=== PATIENT | male | born 1950 | race Caucasian/White ===

== ENCOUNTER → 2023-12-21 10:22 | Outpatient (REF) | payer MEDICARE, OTHER, SELFPAY | LOC: HWRAD 10:22 | PROVIDERS: ATTENDING PHYSICIAN Internal Medicine Endocrinology, Diabetes & Metabolism; FAMILY PHYSICIAN Family Medicine | DX: M81.0 Age-related osteoporosis without current pathological fracture (principal) | CPT/HCPCS: 77080 ==

== ENCOUNTER → 2025-05-20 12:58 | Outpatient (REF) | payer MEDICARE, OTHER, SELFPAY | LOC: HWRAD 12:58 | PROVIDERS: ATTENDING PHYSICIAN Family Medicine; REFERRING PHYSICIAN Psychiatry & Neurology Neurology | DX: M54.6 Pain in thoracic spine (principal); M54.50 Low back pain, unspecified | CPT/HCPCS: 36415; 72072; 72110 ==

== ENCOUNTER → 2025-05-23 09:56 | Outpatient (REF) | payer MEDICARE, OTHER, SELFPAY | LOC: HWRAD 09:56 | PROVIDERS: ATTENDING PHYSICIAN Family Medicine; REFERRING PHYSICIAN Internal Medicine Gastroenterology | DX: R10.11 Right upper quadrant pain (principal) | CPT/HCPCS: 76700 ==

== ENCOUNTER 2025-07-02 13:13 | Inpatient (IN) | payer MEDICARE, OTHER, SELFPAY ==
[2025-07-01] VITALS (11 sets, daily range): BP systolic 85–122; BP diastolic 60–96; BMI 25.9; BMI 25.2
--- NOTE | 2025-07-01 11:04 | EDRN ---
Assumed care of this pt at this time.
--- NOTE | 2025-07-01 11:25 | ED.GENMED ---
History of Present Illness
<BING Cool - Last Filed: 07/01/25 13:58>
General
Chief Complaint: Heart Rate Problem
Source: patient
Exam Limitations: none
Time Seen by Provider: 07/01/25 10:56
Nursing documentation reviewed up to this point in time: agreed with
History of Present Illness
History of Present Illness:
74 yr old male with pmh of asthma, hyperlipidemia, anxiety depression presents to the ER for evaluation. For the past several days to a week he has felt shortness of breath and his heart racing. He denies any associated chest pain. Patient reports
2-1/2 weeks ago he had an episode of lightheadedness and almost passed out. He saw his family doctor around 2 weeks ago and was told his blood pressure was low at that time. Pt denies any recent illness, denies any fevers cough.
No previous history of PE DVT.
Pt quit smoking almost 30 + years ago.
Past History
<BING Cool - Last Filed: 07/01/25 13:58>
Past History
ED Past Medical History: Psychiatric (bipolar depression)
ED Past Surgical History: None
Social History
Alcohol: None
Drug: None
Personal: Other
Living: with roommate
Employment: Not employed
Family History
Family History: Unable to obtain
Phy Exam
<BING Cool - Last Filed: 07/01/25 13:58>
General Physical Exam
General Presentation: no apparent distress
General age: appears stated age
General Skin: warm and dry
General Habitus: normal
General Mental: alert
General Hydration: dry mucous membranes
Cardiovascular Exam
Cardiovascular Exam: no murmur and tachycardia
Pulmonary Exam
Pulmonary Exam: lungs clear and no respiratory distress
Neurological Exam
Neurological Exam: alert and oriented x3
Musculoskeletal Exam
Musculoskeletal Exam: full ROM
Skin Exam
Skin Exam: normal color and warm/dry
Psychiatric Exam
Psychiatric Exam: normal mood/affect
Course
<BING Cool - Last Filed: 07/01/25 13:58>
Orders/Labs/Results
Orders:
Orders
07/01/25 10:18
Electrocardiogram (*1) Urgent
Reason for Study: Chest Pain
EKG- Treatment ONCE
07/01/25 11:06
Cardiac Monitoring- Treatment ONCE
IV Insert/Care/Rem.- Treatment PRN
07/01/25 11:23
Complete Blood Count/With Diff Urgent
07/01/25 11:24
Comprehensive Metabolic Panel Urgent
TSH Urgent
Comment: ADD ON
Troponin I Urgent
07/01/25 11:49
0.9% Sodium Chloride 1000 ml [Nss] 1,000 ml IV BOLUS
07/01/25 12:04
DDimer [D-Dimer] Urgent
07/01/25 12:27
CT Chest PE Study Urgent
Comment:
Reason For Exam: sob
07/01/25 13:19
Add On- LAB Urgent
Tests Added?: tsh
Abnormal Lab Results
07/01/25 07/01/25
11:23 11:24
RBC 4.01 L 10^6/uL
(4.70-6.10)
Hgb 12.0 L g/dL
(13.0-18.0)
Hct 35.4 L %
(39.0-52.0)
Absolute Lymphs (auto) 1.0 L 10^3/uL
(1.2-3.4)
Absolute Monos (auto) 0.8 H 10^3/uL
(0.1-0.6)
Lymphocytes % 16.8 L %
(20.5-51.1)
Monocytes % 12.6 H %
(1.7-9.3)
Sodium 134 L mmol/L
(135-145)
BUN 29 H mg/dl
(9-20)
Glucose 106 H mg/dl
(70-99)
Calcium 10.4 H mg/dl
(8.4-10.2)
Troponin I 0.036 H* ng/ml
07/01/25 11:23
07/01/25 11:24
Vital Signs
Initial and Last Documented VS:
Initial Vital Signs
Temp Pulse Resp BP Pulse Ox
97.9 F 96 22 113/82 96
07/01/25 10:12 07/01/25 10:12 07/01/25 10:12 07/01/25 10:12 07/01/25 10:12
Last Documented Vital Signs
Temp Pulse Resp BP Pulse Ox
97.9 F 109 28 105/84 96
07/01/25 10:12 07/01/25 13:15 07/01/25 13:15 07/01/25 13:02 07/01/25 13:15
Plater Apprentice consulted with Physician
Plater Apprentice consulted with physician?: Yes
Name of Physician Consulted: Miller
<Kevin Bhatt, DO - Last Filed: 07/01/25 13:59>
Orders/Labs/Results
Orders:
Orders
07/01/25 10:18
Electrocardiogram (*1) Urgent
Reason for Study: Chest Pain
EKG- Treatment ONCE
07/01/25 11:06
Cardiac Monitoring- Treatment ONCE
IV Insert/Care/Rem.- Treatment PRN
07/01/25 11:23
Complete Blood Count/With Diff Urgent
07/01/25 11:24
Comprehensive Metabolic Panel Urgent
TSH Urgent
Comment: ADD ON
Troponin I Urgent
07/01/25 11:49
0.9% Sodium Chloride 1000 ml [Nss] 1,000 ml IV BOLUS
07/01/25 12:04
DDimer [D-Dimer] Urgent
07/01/25 12:27
CT Chest PE Study Urgent
Comment:
Reason For Exam: sob
07/01/25 13:19
Add On- LAB Urgent
Tests Added?: tsh
Abnormal Lab Results
07/01/25 07/01/25
11 11:24
RBC 4.01 L 10^6/uL
(4.70-6.10)
Hgb 12.0 L g/dL
(13.0-18.0)
Hct 35.4 L %
(39.0-52.0)
Absolute Lymphs (auto) 1.0 L 10^3/uL
(1.2-3.4)
Absolute Monos (auto) 0.8 H 10^3/uL
(0.1-0.6)
Lymphocytes % 16.8 L %
(20.5-51.1)
Monocytes % 12.6 H %
(1.7-9.3)
Sodium 134 L mmol/L
(135-145)
BUN 29 H mg/dl
(9-20)
Glucose 106 H mg/dl
(70-99)
Calcium 10.4 H mg/dl
(8.4-10.2)
Troponin I 0.036 H* ng/ml
07/01/25 11:23
07/01/25 11:24
Vital Signs
Initial and Last Documented VS:
Initial Vital Signs
Temp Pulse Resp BP Pulse Ox
97.9 F 96 22 113/82 96
07/01/25 10:12 07/01/25 10:12 07/01/25 10:12 07/01/25 10:12 07/01/25 10:12
Last Documented Vital Signs
Temp Pulse Resp BP Pulse Ox
97.9 F 109 28 105/84 96
07/01/25 10:12 07/01/25 13:15 07/01/25 13:15 07/01/25 13:02 07/01/25 13:15
<BING Cool - Last Filed: 07/01/25 13:58>
MDM/Problems Addressed
MDM/Problems Addressed:
As documented patient is a 74-year-old male presents for rapid heart rate shortness of breath. Patient had a near syncopal episode about a week ago. Patient presents to the ER tachycardic blood pressure on the lower side. He denies any fevers his
white count is normal his hemoglobin is stable his BUN is mildly elevated he was given fluids here in the ER.
His trop is elevated however no chest pain possible related to the tachycardia. ct chest neg for PE + interstitial edema and bilateral small effusions there is consolidation the right upper and right lower lobe suspicious for pneumonia however
patient has not had any cough or URI symptoms we will hold off on antibiotics. Additional findings include small pulmonary nodules right lower leg ovoid cystic structure will need ultrasound, hiatal hernia and moderate cardiomegaly. Patient
remains persistently tachycardic with symptoms of syncope and tachycardia along with elevated troponin would recommend admission. Case discussed ED physician
<BING Cool - Last Filed: 07/01/25 13:58>
*Radiology
Radiology exam reviewed: radiology read reviewed
*Pulse Oximetry
SaO2: 96
Oxygen Mode of Delivery: Room air
Patient hypoxic: no
*EKG
Interpreted by ED Provider?: Yes
Heart Rate: 118
Rate: tachycardiac
Rhythm: sinus
QRS Pattern: right bundle branch block
Ischemia: non-specific ST changes
*Critical Care Note
Total Time (30-74mins, 75-104mins- exclusive of procedures): Not Applicable
Data Reviewed
Review of Other/Old Records Reveals: Labs
Source: patient
ED Attending Note
<BING Cool - Last Filed: 07/01/25 13:58>
-
Portions of this chart may have been created with voice recognition software.� Occasional wrong word or��sound alike� substitutions may have occurred due to the inherent limitations of voice recognition software.
<Kevin Bhatt DO - Last Filed: 07/01/25 13:59>
ED Attending Note
Patient seen and examined by attending physician: Yes
I performed the substantive portion of visit, reviewed & personally made and approve the management plan that is documented in note by myself or ESTEFANIA.: Yes
ED Attending Note:
Seen with REFRACTIVE SURGEON examined independently 74-year-old male presents for evaluation 3 weeks ago at rapid heart rate shortness of breath and syncope since then he has been following up with his PCP had some GI workup also an MRI of his back, he said
increased shortness of breath, persistently tachycardic, no fevers, labs are noted D-dimer noted chest CT noted
Etiology of his symptoms is not entirely clear perhaps infectious for volume, thyroid, question myocarditis does not appear to have a PE nonetheless he is symptomatic tachycardic believe he should be admitted
Discharge Plan
Departure
Prescriptions:
No Action
quetiapine [Seroquel] 25 mg Tablet
25 mg PO HSPRN PRN (Reason: sleep)
lamotrigine 200 mg Tablet
200 mg PO DAILY
dexmethylphenidate 10 mg Tablet
10 mg PO DAILY@1400
lorazepam 0.5 mg Tablet
0.5 mg PO DAILYPRN PRN (Reason: anxiety)
pantoprazole [Protonix] 40 mg Tablet,Delayed Release (Dr/Ec)
40 mg PO DAILYPRN PRN (Reason: gerd)
bupropion HCl [Wellbutrin XL] 300 mg Tablet Extended Release 24 Hr
300 mg PO DAILY
quetiapine [Seroquel] 50 mg Tablet
50 mg PO HS
dexmethylphenidate 40 mg Capsule,Er Biphasic 50-50
40 mg PO DAILY
Referrals:
Hudson Whyte MD [Family Provider, [facility]]
Interventions
Interventions:
*Risk Screen - Suicide Last Done: 07/01/25 10:15
*General Assessment Last Done: 07/01/25 10:15
*Neglect/Abuse Screening Last Done: 07/01/25 10:15
*ED- Fall Risk Assessment Last Done: 07/01/25 11:35
*ED COVID-19 Vaccine History Last Done: 07/01/25 12:08
*ED Influenza Vaccine History Last Done: 07/01/25 12:08
ED- Cardiac Assessment Last Done: 07/01/25 11:33
ED- Pulmonary Assessment Last Done: 07/01/25 11:33
Discharge Date and Time
Print Language: BHUTANESE
[2025-07-01 11:36] LABS: Hematocrit 35.4 % (39.0-52.0); Hemoglobin 12.0 g/dL (13.0-18.0); Mean Corp Hgb Conc. 33.9 g/dL (33.0-37.0); Mean Corpuscular Volume 88.3 fL (80.0-94.0); Nucleated Red Blood Cells % 0 % (-); Platelet Count 263 10^3/uL (130-400); Red Cell Dist. Width 14.1 % (11.5-14.5)
--- NOTE | 2025-07-01 11:42 | EDRN ---
Brianne Nava NP in room w/ pt.
[2025-07-01 11:58] LABS: ALT (SGPT) 25 U/L (0-50); AST (SGOT) 21 U/L (17-59); Albumin 3.9 g/dl (3.5-5.0); Alkaline Phosphatase 82 U/L (38-126); Blood Urea Nitrogen 29 mg/dl (9-20); Calcium 10.4 mg/dl (8.4-10.2); Carbon Dioxide 24 mmol/L (22-30); Chloride 103 mmol/L (98-107); Estimated Creatinine Clearance 53 ml/min; Glucose 106 mg/dl (70-99); Potassium 4.6 mmol/L (3.5-5.1); Sodium 134 mmol/L (135-145); Total Protein 6.3 g/dl (6.3-8.2); eGFR > 60.00
[2025-07-01] MEDS: NSS 1000 IV (12:09)
[2025-07-01 12:21] LABS: Troponin I 0.036 ng/ml
[2025-07-01 12:37] LABS: D-Dimer 0.34 ug/mlFEU (0.00-0.50)
--- NOTE | 2025-07-01 13:37 | EDRN ---
Dr. Bhatt in room w/pt at this time.
--- NOTE | 2025-07-01 15:03 | EDRN ---
Dr. Welsh in room w/ pt at this time.
[2025-07-01 15:20] LABS: TSH 3.15 uIU/ml (0.47-4.68)
--- NOTE | 2025-07-01 15:38 | HPS.HSE ---
Family Physician
-
Family Physician: Hudson Whyte
Chief Complaint
-
Tachycardia, shortness of breath
History of Present Illness
74-year-old male here complaining of tachycardia and shortness of breath for the past 2 to 3 weeks.
He is a very limited and poor historian.
Denies fevers, chills, cough.
Medical History
Past Medical History
Past Medical History: Reports Other
Additional Past Medical History:
Asthma
Hyperlipidemia
Anxiety disorder
Depression
ADD
Past Surgical History: Reports Orthopedic
Social History
Tobacco: Former Smoker
Alcohol: None
Drug: None
Personal: Single
Employment: Not Employed
Family History
Family History: Not pertinent
Allergies / Home Medications
Allergies reflects when Allergies were last updated in [employer].
Home Medications with original date entered in [employer]
Allergy/Medication List:
Allergies
Allergy/AdvReac Type Severity Reaction Status Date / Time
Hayfever Allergy Mild-Sneezing, Uncoded 07/01/25 10:12
sinus
drainage
Home Medications
bupropion HCl 300 mg 24 hr tablet, extended release (Wellbutrin XL) 300 mg PO DAILY Mental Health/Anxiety 07/01/25
dexmethylphenidate 10 mg tablet 10 mg PO DAILY@1400 Mental Health/Anxiety 07/01/25
dexmethylphenidate 40 mg capsule,extended release [id number] 40 mg PO DAILY Mental Health/Anxiety 07/01/25
lamotrigine 200 mg tablet 200 mg PO DAILY Mental Health/Anxiety 07/01/25
lorazepam 0.5 mg tablet 0.5 mg PO DAILYPRN PRN anxiety 07/01/25
pantoprazole 40 mg tablet,delayed release (Protonix) 40 mg PO DAILYPRN PRN gerd 07/01/25
quetiapine 25 mg tablet (Seroquel) 25 mg PO HSPRN PRN sleep 07/01/25
quetiapine 50 mg tablet (Seroquel) 50 mg PO HS Sleep 07/01/25
Review of Systems
-
History Source: Patient
A 12 point ROS was completed and negative except as noted: Yes
Physical Exam
Vital Signs
Vital Signs
Temp Pulse Resp BP Pulse Ox
97.9 F 118 20 122/89 95
07/01/25 10:12 07/01/25 15:01 07/01/25 15:01 07/01/25 15:01 07/01/25 15:01
Physical Exam
General: Well Developed, Well Nourished and Respiratory Distress (Mildly tachypneic)
HEENT: NormoCephalic, Anicteric and Moist mucous membranes
Respiratory: Decreased Breath Sounds
Cardiac: S1/S2 and Regular Rhythm
GI: Soft, Non Tender and Non Distended
Genito-urinary: Deferred by me
Musculoskeletal: No Clubbing, No Cyanosis and No Edema
Skin: Warm and Dry
Neuro: AO x 3
Hematologic/Lymphatic: No Lymphadenopathy
Psych: Anxious
Laboratory Results
-
07/01/25 11:23
07/01/25 11:24
Laboratory Results
Total Bilirubin 0.3 mg/dl (0.2-1.3) 07/01/25 11:24
AST 21 U/L (17-59) 07/01/25 11:24
ALT 25 U/L (0-50) 07/01/25 11:24
Alkaline Phosphatase 82 U/L (38-126) 07/01/25 11:24
Troponin I 0.036 ng/ml H* 07/01/25 11:24
Impression/Plan
-
Sinus tachycardia/shortness of breath -not appreciably hypoxic. No pulmonary embolism noted on CT chest. D-dimer 0.34.
CT chest does show interstitial edema and bilateral small pleural effusions. Right upper lobe and right lower lobe consolidation noted, differential diagnosis of CHF versus pneumonia. Nonspecific right lower neck ovoid cystic structure measuring
2.4 cm of indeterminate etiology.
Looks nontoxic, afebrile. WBC count normal.
Does not examine in heart failure but will check BNP.
Check echocardiogram in the morning. Evaluate for valvular heart disease, cardiomyopathy.
TSH noted to be normal.
Mild troponin elevation noted. Denies chest pain. Will trend troponins. EKG shows sinus tachycardia, occasional PVCs, bifascicular block. Patient denies cardiac history.
Check COVID antigen.
Former smoker -patient states he quit smoking 40 years ago.
Anxiety/depression -resume home meds.
Full code
[2025-07-01 17:07] LABS: COVID-19 Antigen Negative (Negative)
--- NOTE | 2025-07-01 18:09 | TRANSFER ---
pt arrived from ED via stretcher accompanied by staff. pt ambulated from stretcher to bed with standby assist. VSS. pt AAOx3, no complaints at this time. plan of care ongoing.
[2025-07-01] MEDS: LOVENOX 40 MG SC (18:20)
[2025-07-01 21:25] LABS: Troponin I 0.036 ng/ml
[2025-07-01] MEDS: SEROQUEL 50 MG PO (22:43)
[2025-07-01] MEDS: SEROQUEL 25 MG PO (23:00)
[2025-07-02] VITALS (8 sets, daily range): BP systolic 97–120; BP diastolic 62–78; BMI 25.5
[2025-07-02 03:55] LABS: Blood Urea Nitrogen 23 mg/dl (9-20); Calcium 9.7 mg/dl (8.4-10.2); Carbon Dioxide 24 mmol/L (22-30); Chloride 107 mmol/L (98-107); Estimated Creatinine Clearance 65 ml/min; Glucose 92 mg/dl (70-99); Potassium 4.0 mmol/L (3.5-5.1); Sodium 134 mmol/L (135-145); eGFR > 60.00
[2025-07-02 04:07] LABS: Troponin I 0.036 ng/ml
[2025-07-02 08:01] LABS: Hepatitis C Antibody Negative (Negative)
[2025-07-02] MEDS: LAMICTAL 200 MG PO (08:34)
[2025-07-02] MEDS: WELLBUTRIN XL (24 hour extended release) 300 MG PO (08:35)
[2025-07-02 09:13] LABS: Troponin I 0.031 ng/ml
[2025-07-02] MEDS: TUMS CHEWABLE TABLET 400 MG PO ×2 (13:05→17:08)
--- NOTE | 2025-07-02 13:07 | W.PN.HOSP.TC ---
Today's Communication/Plan
-
Consult cardiology
Assessment / Plan
Assessment / Plan
Gen-AAOx3, NAD
HEENT-NC, AT, anicteric, clear oral mm
Neck-supple
CV-reg, no M, +S1/S2
Lungs-clear B/L
Abd-soft, NT, ND
Ext-no edema
Musculoskeletal-no cyanosis, clubbing
Skin-warm and dry
Neuro-grossly non-focal
Psych-calm, cooperative
Acute heart failure reduced EF exacerbation -new diagnosis of heart failure.
Echocardiogram shows dilated LV, severe LV systolic dysfunction, EF 25%. Severe MR.
CT chest shows interstitial edema, very small pleural effusions.
Hypotension noted, but ideally will need to start furosemide.
Cardiology consulted.
Will need ischemic workup eventually.
Anxiety/depression
Former smoker
Full code
Anticipated Discharge: > 48 hours
Subjective/Interval History
-
Date of Service: July 02, 2025
Patient seen/examined. Still with exertional dyspnea.
Objective Data
-
Labs:
Laboratory Results
07/02/25
03:22
Sodium 134 L
Potassium 4.0
Chloride 107
Carbon Dioxide 24
BUN 23 H
Creatinine 0.9
Glucose 92
Calcium 9.7
Vital Signs:
Vital Signs
Temp Pulse Resp BP Pulse Ox
98.0 F 107 20 108/75 98
07/02/25 11:20 07/02/25 11:20 07/02/25 11:20 07/02/25 11:20 07/02/25 11:20
I&O
07/01/25 07/02/25 07/03/25
06:59 06:59 06:59
Intake Total 480 / 480
Output Total 1800 / 1800
Balance -1320 / -1320
Review of Systems
-
History Source: Patient
All other systems: Reviewed and negative
[2025-07-02] MEDS: LASIX 40 MG IV (13:38)
--- NOTE | 2025-07-02 15:26 | CON.CAR ---
Addendum entered and electronically signed by Shyam Olivia MD 07/02/25 17:45:
I saw and evaluated the patient, and I provided the substantive portion of the medical decision making.
I reviewed and agree with the note by BING Martin and it accurately reflects our care.
I personally performed the medical decision making of the this encounter and my assessment and plan is below:
Progressive KNIGHT and atypical back pain, some palpitations
Extensive Psych d/o. He is not sure he would tolerate being off his stimulant (dexmethylphenidate)
Hx of MVP with mild to mod MR in 2020 without f/u echo
Imp
Acute on chronic (but new over perhaps 3 months) HFrEF
Severe MR, may be primary MR from MVP
Dilated cardiomyopathy
Bifasciular block
Psych d/o
stimulant use
Plan
Diuresis
Add GDMT
R/L Heart cath 07/03/2025
in several months on max meds will check echo to see how LVEF and MR are doing.
Data:
EKG ST RBBB/LAFB, cannot rule out IMI, age indeterminant
Echo 07/02/2025:
SUMMARY
1. LV is dilated. There is severe LV systolic dysfunction. LVEF estimated 25%.
2. Severe mitral regurgitation.
3. Moderate pulmonary hypertension, est. PASP 50 mmHg.
4. Bilateral effusions noted.
5. Echocardiogram dated 10/27/2020 revealed LVEF of 60% with posterior mitral valve prolapse and mild to mod MR and normal pulm artery systolic pressure.
CT CHEST 07/01/2025:
IMPRESSION:
1. No pulmonary embolism identified.
2. Interstitial edema and bilateral very small pleural effusions.
3. Consolidation in the right upper lobe and the right lower lobe. While alveolar edema is possible, this is more suspicious for pneumonia. Associated mild mediastinal lymphadenopathy.
4. Small pulmonary nodules as above. Recommend a follow-up CT of the chest after resolution of acute illness for further evaluation.
5. Right lower neck ovoid cystic structure measuring up to 2.4 cm in diameter as above, indeterminate etiology. Could be further evaluated with follow-up ultrasound on emergently.
6. Hiatal hernia. Eccentric wall thickening of the distal esophagus suggesting esophagitis.
7. Moderate cardiomegaly.
Original Note:
Consultation
Consultation Request
Date/Time Consultation Requested: 07/02/2025 13:05
Date/Time Consultation Performed: 07/02/2025 13:30
Requesting Provider: Dr. Welsh
Performing Provider: BING Martin for Dr. Olivia
Reason for Consultation: Abnormal echocardiogram
Medical History
-
Chief Complaint: Tachycardia, shortness of breath
History of Present Illness:
Kvng Tee is a 74-year-old male with ADHD, asthma, hyperlipidemia, and depression who presented to the emergency department with a chief complaint of palpitations. He endorsed associated shortness of breath. This started 3 weeks prior to
arrival and progressively got worse. He was evaluated by his PCP and told he had hypotension. An echocardiogram was ordered by the primary service for dizziness. He was found to have an LVEF of 25% with severe mitral regurgitation. At the time of
this consultation, Kvng had no chest pain, shortness of breath, nor dizziness.
Past Medical History
Past Medical History: Asthma, Hypercholesterolemia and Psychiatric (Anxiety, depression, ADHD)
Past Surgical History: Orthopedic
Social History
Tobacco: Former Smoker
Alcohol: None
Drug: None
Personal: Single
Living: With Family (John [caregiver])
Employment: Retired
Family History
Family History: Reviewed & Not Pertinent
Allergies / Home Medications
Allergy/AdvReac Type Severity Reaction Status Date / Time
pollen extracts Allergy [id number], Verified 07/01/25 18:04
sinus
drainage
�Medication �Instructions �Recorded �Confirmed �Type
bupropion HCl 300 mg 24 hr tablet, 300 mg PO DAILY Mental 07/01/25 07/01/25 History
extended release (Wellbutrin XL) Health/Anxiety
dexmethylphenidate 10 mg tablet 10 mg PO DAILY@1400 Mental 07/01/25 07/01/25 History
Health/Anxiety
dexmethylphenidate 40 mg 40 mg PO DAILY Mental 07/01/25 07/01/25 History
capsule,extended release Health/Anxiety
[id number]
lamotrigine 200 mg tablet 200 mg PO DAILY Mental 07/01/25 07/01/25 History
Health/Anxiety
lorazepam 0.5 mg tablet 0.5 mg PO DAILYPRN PRN anxiety 07/01/25 07/01/25 History
pantoprazole 40 mg tablet,delayed 40 mg PO DAILYPRN PRN gerd 07/01/25 07/01/25 History
release (Protonix)
quetiapine 25 mg tablet (Seroquel) 25 mg PO HSPRN PRN sleep 07/01/25 07/01/25 History
quetiapine 50 mg tablet (Seroquel) 50 mg PO HS Sleep 07/01/25 07/01/25 History
Review of Systems
-
History Source: Patient
All other systems: Negative unless noted
Constitutional: No Symptoms
EENT: No Symptoms
Cardiac: No Symptoms
Abdomen/GI: No Symptoms
: No Symptoms
Musculoskeletal: No Symptoms
Skin: No Symptoms
Neurological: No Symptoms
Endocrine: No Symptoms
Hematologic/Lymphatic: No Symptoms
Physical Exam
Vital Signs
Temp Pulse Resp BP Pulse Ox
98.0 F 110 20 120/78 98
07/02/25 11:20 07/02/25 13:38 07/02/25 11:20 07/02/25 13:38 07/02/25 11:20
Lab Results
07/01/25 11:23
07/02/25 03:22
Troponin I 0.031 ng/ml 07/02/25 08:30
[id number] Pept 9840 pg/ml 07/01/25 11:24
Physical Exam
General: Well Developed, Well Nourished, No Apparent Distress and Comfortable
HEENT: Normocephalic, Anicteric and Moist Mucous Membranes
Respiratory: Clear and Non Labored Respirations
Cardiac: S1/S2, Regular Rhythm and Murmur
Breast: Deferred by me
GI: Soft, Non Tender, Non Distended and Normal Bowel Sounds
Rectal: Deferred by Provider
Genito-urinary: No Costovertebral Tender
Musculoskeletal: No Clubbing and No Cyanosis
Skin: Warm and Dry
Neuro: Awake
Hematologic/Lymphatic: No Lymphadenopathy
Psych: Calm
Impression / Plan
-
I/P: 74M with with ADHD, asthma, hyperlipidemia, and depression who presented to the emergency department with a chief complaint of palpitations and associated shortness of breath
Outpatient marketing writer: None prior to arrival
HFrEF (LVEF 25%), acute
Cardiomyopathy, type unknown -ischemic versus nonischemic
- Echocardiogram shows severe diffuse global hypokinesis of most of the LV, the anterior septum is relatively preserved
- He does not appear grossly volume overloaded, start furosemide 40 mg IV daily, this requires intensive monitoring
- GDMT as tolerated:
-LINDSEY/ARB/ARNI: Case management to acosta sacubitril�valsartan, however I am not sure we have enough BP room
-SGLT2 inhibitor: Case management to acosta
-Aldosterone agonist: Can consider, no hyperkalemia and renal function is stable
-Beta yamileth: Consider the addition of metoprolol succinate
-Isosorbide/Hydralazine:�Not currently indicated
-ICD: Reevaluate LVEF after 3 months of maximally tolerated medical therapy
- RHC/LHC tomorrow (severe MR as below)
- Heart failure education
- Trend daily weight, I/O, and BMP
Mitral regurgitation, severe
- New compared to 2020 echo with showed MVP of posterior leaflet with mild/moderate MR
- RHC tomorrow
Moderate pulmonary hypertension, PASP 50 mmHg, RHC tomorrow
ADHD, on dexmethylphenidate, consider discontinuation as this is contraindicated with his cardiomyopathy
Abnormal troponin, nonischemic myocardial injury in the setting of HFrEF
- Troponin 0.036 x 3
- He denies chest pain
Anxiety, with depressive features, chronic
Former smoker, continued cessation recommended
Data Reviewed
-
Medical Tests (Nuc Med, Echo etc): Report Reviewed by me
Labs: Labs Reviewed by me
Old Records: Reviewed
--- NOTE | 2025-07-02 16:01 | CM ---
Alert awake oriented patient who lives with friend Ayad who lives in a 1 story home with 4 step to enter.He is assisted in all activities of daily ing.He was offered VN he declined need.No adaptive devices used.BUSTAMANTE letter explained signed on
chart.
VN / [facility] [place] history
Pharmacy [facility]
PCP DR Hudson Whyte
PLAN Home Declined VN
[2025-07-02] MEDS: PROTONIX 40 MG PO (17:08)
[2025-07-02] MEDS: LOVENOX 40 MG SC (17:08)
[2025-07-02] MEDS: FARXIGA 10 MG PO (17:08)
[2025-07-02] MEDS: SEROQUEL 50 MG PO (22:14)
[2025-07-02] MEDS: SEROQUEL 25 MG PO (22:14)
[2025-07-03] VITALS (13 sets, daily range): BP systolic 87–113; BP diastolic 59–78; BMI 24.2
[2025-07-03 07:55] LABS: Blood Urea Nitrogen 22 mg/dl (9-20); Calcium 10.5 mg/dl (8.4-10.2); Carbon Dioxide 29 mmol/L (22-30); Chloride 102 mmol/L (98-107); Estimated Creatinine Clearance 49 ml/min; Glucose 87 mg/dl (70-99); HDL Cholesterol 66 mg/dl; LDL Cholesterol, Calculated 128 mg/dl; Potassium 4.5 mmol/L (3.5-5.1); Sodium 139 mmol/L (135-145); Very Low Density Lipoprotein 15 mg/dl (0-30); eGFR > 60.00
[2025-07-03] MEDS: LAMICTAL 200 MG PO (08:32)
[2025-07-03] MEDS: LASIX 40 MG IV (08:32)
[2025-07-03] MEDS: WELLBUTRIN XL (24 hour extended release) 300 MG PO (08:32)
[2025-07-03] MEDS: TOPROL XL 12.5 MG PO (08:33)
[2025-07-03] MEDS: FARXIGA 10 MG PO (08:33)
[2025-07-03] MEDS: LOW STRENGTH ASPIRIN 324 MG PO (08:44)
--- NOTE | 2025-07-03 09:02 | W.PN.HOSP.TC ---
Today's Communication/Plan
-
Right/left heart catheterization
Assessment / Plan
Assessment / Plan
Gen-AAOx3, NAD
HEENT-NC, AT, anicteric, clear oral mm
Neck-supple
CV-reg, no M, +S1/S2
Lungs-clear B/L
Abd-soft, NT, ND
Ext-no edema
Musculoskeletal-no cyanosis, clubbing
Skin-warm and dry
Neuro-grossly non-focal
Psych-calm, cooperative
Acute heart failure reduced EF exacerbation -new diagnosis of heart failure.
Echocardiogram shows dilated LV, severe LV systolic dysfunction, EF 25%. Severe MR.
CT chest shows interstitial edema, very small pleural effusions.
Continue IV Lasix. Clinically improving. Weight is coming down. Oxygenation stable on room air.
Awaiting right and left heart catheterization today. Discussed with cardiology.
Mild hypercalcemia -10.5. Monitor for now.
Anxiety/depression
Former smoker
Full code
Anticipated Discharge: > 48 hours
Subjective/Interval History
-
Date of Service: July 03, 2025
Patient seen and examined. States shortness of breath is starting to improve. No new complaints.
Objective Data
-
Labs:
Laboratory Results
07/03/25
06:14
Sodium 139
Potassium 4.5
Chloride 102
Carbon Dioxide 29
BUN 22 H
Creatinine 1.2
Glucose 87
Calcium 10.5 H
Vital Signs:
Vital Signs
Temp Pulse Resp BP Pulse Ox
98.3 F 112 16 119/86 94
07/03/25 07:15 07/03/25 08:32 07/03/25 07:15 07/03/25 08:32 07/03/25 07:15
I&O
1107/03/25 07/04/25
06:59 06:59 06:59
Intake Total 480 / 480 360 / 360
Output Total 1800 / 1800 1974
Balance -1320 / -1320 -1615 / -1615
Review of Systems
-
History Source: Patient
All other systems: Reviewed and negative
--- NOTE | 2025-07-03 09:21 | CM ---
Addendum entered by Ольга Mckay RN 07/03/25 15:05:
Pt return from right and left heart cath.
IMM reviewed with patient. He signed IMM on chart.
Original Note:
notified as per [facility]iga is $282.00/ mon and Entresto BID is $15.37/ mon.
Cardiology involved indicated right and left cardiac cath.
PT screen indicated no home care needs.
Ayad will drive him home [place].
PLAN Home no anticipated needs
[2025-07-03 09:46] LABS: Glycohemoglobin (HgbA1c) 5.7 % (4.0-5.9)
--- NOTE | 2025-07-03 09:50 | W.PN.CD ---
Today's Communication / Plan
-
One dose ASA in case PCI performed today
L/R Heart cath today
Slow titration of meds, but want him on 4 pillars at max tolearted doses within 3 months
Impression / Plan
-
I/P: 74M with with ADHD, asthma, hyperlipidemia, and depression who presented to the emergency department with a chief complaint of palpitations and associated shortness of breath
Outpatient hat model: None prior to arrival
HFrEF (LVEF 25%), acute
Cardiomyopathy, type unknown -ischemic versus nonischemic
- Echocardiogram shows severe diffuse global hypokinesis of most of the LV, the anterior septum is relatively preserved
- He does not appear grossly volume overloaded, start furosemide 40 mg IV daily, this requires intensive monitoring
- GDMT as tolerated:
-LINDSEY/ARB/ARNI: Case management to acosta sacubitril�valsartan, however I am not sure we have enough BP room. Will add low dose soon
-SGLT2 inhibitor: Case management to acosta => started
-Aldosterone agonist: Can consider, no hyperkalemia and renal function is stable => start after recovers from IV contrast
-Beta yamileth: Started very low dose metoprolol succinate
-Isosorbide/Hydralazine:�Not currently indicated
-ICD: Reevaluate LVEF after 3 months of maximally tolerated medical therapy
- RHC/LHC tomorrow (severe MR as below)
- Heart failure education
- Trend daily weight, I/O, and BMP
Mitral regurgitation, severe
- New compared to 2020 echo with showed MVP of posterior leaflet with mild/moderate MR
- RHC tomorrow
Moderate pulmonary hypertension, PASP 50 mmHg, RHC tomorrow
ADHD, on dexmethylphenidate, consider discontinuation as this is contraindicated with his cardiomyopathy
Abnormal troponin, nonischemic myocardial injury in the setting of HFrEF
- Troponin 0.036 x 3
- He denies chest pain
Anxiety, with depressive features, chronic
Former smoker, continued cessation recommended
Physical Exam
Vital Signs/Labs
Vital Signs
Temp Pulse Resp BP Pulse Ox
98.3 F 112 16 119/86 94
07/03/25 07:15 07/03/25 08:32 07/03/25 07:15 07/03/25 08:32 07/03/25 07:15
07/02/25 07/03/25 07/04/25
06:59 06:59 06:59
Actual Weight 70.534 kg 66.996 kg
07/01/25 11:23
07/03/25 06:14
Triglycerides 75 mg/dl (10-149) 07/03/25 06:14
LDL Cholesterol, Calc 128 mg/dl 07/03/25 06:14
VLDL Cholesterol, Calc 15 mg/dl (0-30) 07/03/25 06:14
HDL Cholesterol 66 mg/dl 07/03/25 06:14
TSH 3.15 uIU/ml (0.47-4.68) 07/01/25 11:24
07/01/25
11:24
Pda-D-Vifeyvbfrys Pept 9840
LAB Results
07/01/25 07/01/25 07/02/25
11:24 20:46 03:22
Troponin I 0.036 H* 0.036 H* 0.036 H*
07/02/25
08:30
Troponin I 0.031
Physical Exam
Constitutional: No acute distress
EENT: Anicteric
Cardiovascular: Rhythm & rate is regular and Pedal edema is absent
Respiratory: Respiratory effort normal and Lungs clear to auscul.
GI: Soft and Distention absent
Neuro/Psych: AO x 3
Data Reviewed
-
Date of Service: July 03, 2025
--- NOTE | 2025-07-03 14:31 | ITS.CL.CATH ---
Matchbook As[employer]er - Catheterization
Cardiac Catheterization
Procedure Report:
CARDIAC CATHETERIZATION REPORT
Date of Procedure: 07/03/2025
Referring: Shyam Olivia M.D.
Indication: New cardiomyopathy, severe mitral valve regurgitation.
PROCEDURE:
1. Right heart catheterization.
2. Coronary angiography.
3. Left heart catheterization.
A total of 7 minutes of procedural/moderate sedation was utilized. An independent biomedical engineering technologist was present to assist with and help manage the patient's level of consciousness and physiologic status.
ACCESS:
1. 6 Georgian right radial artery using a modified Seldinger technique.
2. 5 Georgian right antecubital vein using a previously placed IV.
CATHETERS:
1. 5 Georgian balloon wedge.
2. 5 Georgian JL 3.5.
3. 5 Georgian JR4.
HEMODYNAMIC DATA
Weight (kg): 66.7
AO (s/d/x, mmHg): 89/68/77
LV (s/x, mmHg): 93/16
PCWP (a/v/x, mmHg): 19/20/16
PA (s/d/x, mmHg): 35/17/23
RV (s/x, mmHg): 35/5
RA (a/v/x, mmHg): 8/6/5
SVC SvO2 (%): 67.3
IVC SvO2 (%): Not obtained.
RA SvO2 (%): Not obtained.
RV SvO2 (%): Not obtained.
PA SvO2 (%): 60.0
SaO2 (%): 94.3
Hbg (g/dL): 13.2
CLIFFORD
CO (L/min): 4.41
CI (L/min/m2): 2.54
Thermodilution
CO (L/min): Not performed.
CI (L/min/m2): Not performed.
TPG (mmHg): 7
PVR (Arcos Units): 1.59
SVR (dynes*seconds*cm^-5): 1306
AVO2 Diff (Volume %): 6.16
Cardiac Power Output (obrien): 0.75 (MAP * CO)/451 (normal 0.5 - 0.7; 0.4 - 0.6 in the elderly)
Cardiac Power Index (obrien/m2): 0.43 (MAP * CI)/451
Joe: 3.6 (PAs-PAd)/RA
AV gradient (x, mmHg): None.
AV area (cm2): Normal.
MV gradient (x, mmHg): Not obtained.
MV area (cm2): Not obtained.
LEFT VENTRICULOGRAPHY: Not performed.
AORTOGRAPHY: Not performed.
CORONARY ANGIOGRAPHY
Dominance: Right.
Left Main: Normal size, bifurcating vessel. There is no coronary artery disease.
LAD: Normal size vessel giving rise to 1 significant diagonal. There is no coronary artery disease.
Ramus: Congenitally absent.
Circumflex: Normal size, nondominant vessel giving rise to 3 obtuse marginals before terminating as a left posterolateral branch. There is no coronary artery disease.
RCA: Normal size, dominant vessel. There is no coronary artery disease.
INTERVENTIONS
None.
Closure Device: Vascular band for the right radial artery, manual pressure of the right antecubital vein.
Radiation dose (mGy): 375.60
DAP (cm2.Gy): 31.8745
Fluoroscopy time (minutes): 4.1
CONCLUSIONS:
1. Right dominant circulation with no coronary artery disease.
2. Mildly elevated filling pressures (LVEDP = 16 mmHg, PCWP = 16 mmHg at 66.7 kg).
3. Mixed normal and abnormal cardiac function measurements (cardiac index = 2.54 L/min, cardiac power output = 0.75 W, AVO2 difference = 6.16 volume%, Joe = 3.6).
4. Severe systolic cardiomyopathy, nonischemic, per echocardiography.
5. Severe mitral valve regurgitation on echocardiography.
RECOMMENDATIONS:
1. Expectant management after cardiac catheterization via right radial/antecubital approach.
2. Limited weight bearing on the right wrist for one week.
3. The patient's LVEDP and PCWP are mildly elevated but this is probably appropriate given his degree of LV dysfunction and severe MR. 66.7 kg is the patient's dry weight.
4. OMT/GDMT as hemodynamics will tolerate.
5. Consider transesophageal echocardiogram for evaluation of mitral valve anatomy and consideration of M�LENNIE.
Copy to: Shyam Olivia M.D., Hudson Whyte M.D.
Kelby Munguia DO, FACC, FACP
--- NOTE | 2025-07-03 15:18 | PTCARENOTE ---
rec'd pt from lab nurse at 1445. right radial artery band in place with 8cc of air. 4x4 with [address]erm in place on R brachial darya. dressings are dry and intact. see documentation. VSS. pt AAOx3, no complaints at this time. will continue to monitor.
--- NOTE | 2025-07-03 16:54 | PTCARENOTE ---
upon removal of R band and final 2 ml of air at 1425, the site was oozing for a few seconds and a small hematoma was visualized at the site. Alayna SMART made aware. instructions to hold pressure at the site for 5 minutes and dress with gauze
and tegaderm firmly. plan of care ongoing.
[2025-07-03] MEDS: LOVENOX 40 MG SC (17:50)
[2025-07-03] MEDS: SEROQUEL 50 MG PO (22:01)
[2025-07-04] VITALS (8 sets, daily range): BP systolic 85–120; BP diastolic 58–88; BMI 23.8
[2025-07-04] MEDS: SEROQUEL 25 MG PO (00:27)
[2025-07-04 07:43] LABS: Hematocrit 41.7 % (39.0-52.0); Hemoglobin 13.8 g/dL (13.0-18.0); Mean Corp Hgb Conc. 33.1 g/dL (33.0-37.0); Mean Corpuscular Volume 91.0 fL (80.0-94.0); Platelet Count 302 10^3/uL (130-400); Red Cell Dist. Width 14.2 % (11.5-14.5)
[2025-07-04 07:46] LABS: Blood Urea Nitrogen 32 mg/dl (9-20); Calcium 10.4 mg/dl (8.4-10.2); Carbon Dioxide 29 mmol/L (22-30); Chloride 100 mmol/L (98-107); Estimated Creatinine Clearance 49 ml/min; Glucose 99 mg/dl (70-99); Potassium 4.3 mmol/L (3.5-5.1); Sodium 136 mmol/L (135-145); eGFR > 60.00
--- NOTE | 2025-07-04 08:27 | PTCARENOTE ---
Pt is off the floor at this time to supervisor cytogenetic laboratory for JESSE.
--- NOTE | 2025-07-04 09:49 | PTCARENOTE ---
Pt returned to the floor s/p JESSE. Pt ambulated from stretcher to bed with [id number]. VSS. Pt denies pain. Call syed within reach.
--- NOTE | 2025-07-04 10:02 | ITS.CL.PN ---
Sales Communications Manager - Procedure Note
Procedure
Procedure Note:
Date of Procedure:
Procedure: JESSE
Indication: Severe mitral regurgitation
Performing Physician: Claudia Pablo MD
Technique: The patient was brought to the holding area in a fasted state. Signed informed consent was obtained. A time out was called and performed. The patient was anesthetized by the anesthesia service. JESSE probe was inserted without difficulty.
Mid esophageal images were obtained. Gastric views were not attempted due to prior history of hiatal hernia surgery with residual symptoms of lower esophageal dysphagia. There were no complications.
Conclusion: Severe LV dysfunction. Thickened mitral leaflets. Mild mitral regurgitation (calculated EROA 0.16 cm^2). See full report for further details.
Recommendation: Routine post JESSE care. Continue GDMT as previously prescribed.
--- NOTE | 2025-07-04 10:12 | W.PN.HOSP.TC ---
Today's Communication/Plan
-
Await cardiology input
Intact PTH
Assessment / Plan
Assessment / Plan
Gen-AAOx3, NAD
HEENT-NC, AT, anicteric, clear oral mm
Neck-supple
CV-reg, no M, +S1/S2
Lungs-clear B/L
Abd-soft, NT, ND
Ext-no edema
Musculoskeletal-no cyanosis, clubbing
Skin-warm and dry
Neuro-5 out of 5 bilateral upper and lower extremity motor strength. Normal jexrhe-kv-tcpb testing. No dysdiadochokinesia. Normal bcdn-qg-[id number] bilaterally. Normal sensory exam. No facial droop. Cranial nerves II through XII intact.
Psych-calm, cooperative
Acute heart failure reduced EF exacerbation -new diagnosis of heart failure.
Echocardiogram shows dilated LV, severe LV systolic dysfunction, EF 25%. Severe MR.
CT chest shows interstitial edema, very small pleural effusions.
Now on oral Lasix. Clinically improving. Weight is coming down. Oxygenation stable on room air.
Patient completed right/left heart catheterization 07/03, right dominant circulation with no CAD. PCWP 16. Findings consistent with nonischemic cardiomyopathy.
Mitral regurgitation -transthoracic echo read as severe regurgitation. However, JESSE read as mild.
Mild hypercalcemia -10.5. Monitor for now. Will check intact PTH.
Anxiety/depression
Former smoker
Full code
Dispo -discharge when cleared by cardiology.
Anticipated Discharge: Within 24 hours
Subjective/Interval History
-
Date of Service: July 04, 2025
Patient seen and examined. Complaining of occasional problems with depth perception, started a while ago.
Objective Data
-
Labs:
Laboratory Results
07/04/25
06:13
WBC 5.5
Hgb 13.8
Hct 41.7
Plt Count 302
Sodium 136
Potassium 4.3
Chloride 100
Carbon Dioxide 29
BUN 32 H
Creatinine 1.2
Glucose 99
Calcium 10.4 H
Vital Signs:
Vital Signs
Temp Pulse Resp BP Pulse Ox
98.0 F 94 20 102/70 97
07/04/25 09:48 07/04/25 09:48 07/04/25 09:48 07/04/25 09:48 07/04/25 09:48
I&O
07/03/25 07/04/25 07/05/25
06:59 06:59 06:59
Intake Total 360 / 360 960 / 960
Output Total 1974 / 1974 1075 / 1075
Balance -1615 / -1615 -115 / -115
Review of Systems
-
History Source: Patient
All other systems: Reviewed and negative
[2025-07-04] MEDS: LASIX 40 MG PO (10:38)
[2025-07-04] MEDS: FARXIGA 10 MG PO (10:38)
[2025-07-04] MEDS: WELLBUTRIN XL (24 hour extended release) 300 MG PO (10:38)
[2025-07-04] MEDS: LAMICTAL 200 MG PO (10:38)
[2025-07-04] MEDS: TOPROL XL 12.5 MG PO (14:41)
--- NOTE | 2025-07-04 15:33 | CM ---
Post right and left heart cath.
notified as per [facility] is $282.00/ mon and Michael BID is $15.37/ mon.
PT screen indicated no home care needs.
Ayad will drive him home at [place].
PLAN Home no anticipated needs
--- NOTE | 2025-07-04 17:09 | W.PN.CD ---
Today's Communication / Plan
-
titrate GDMT as tolerated
Impression / Plan
-
I/P: 74M with with ADHD, asthma, hyperlipidemia, and depression who presented to the emergency department with a chief complaint of palpitations and associated shortness of breath
Outpatient development geologist: None prior to arrival
HFrEF (LVEF 25%), acute
Cardiomyopathy, type unknown -ischemic versus nonischemic
- Echocardiogram shows severe diffuse global hypokinesis of most of the LV, the anterior septum is relatively preserved
- GDMT as tolerated:
-LINDSEY/ARB/ARNI: Will trial low dose valsartan today, eventual Entresto if tolerated
-SGLT2 inhibitor: Case management to acosta => started
-Aldosterone agonist: Can consider, no hyperkalemia and renal function is stable, start pending tolerance to ARB/ARNI
-Beta yamileth: Started low dose metoprolol succinate
-Isosorbide/Hydralazine:�Not currently indicated
-ICD: Reevaluate LVEF after 3 months of maximally tolerated medical therapy
- RHC/LHC with normal filling pressure and no significant CAD
- Heart failure education
- Trend daily weight, I/O, and BMP
Mitral regurgitation, severe
- New compared to 2020 echo with showed MVP of posterior leaflet with mild/moderate MR
- JESSE with mixed valve disease (anterior prolapse and tethering), ERO 0.16 cm2 based on PISA but several jets so may be underestimated, RVol ~18 cm2, suspect MR is at least mild-moderate in severity on JESSE, likely improved from time of TTE in
setting of diuresis and/or afterload reduction with meds/anesthesia
- will need to be evaluated with TTE as outpatient after maximally tolerated GDMT to determine potential benefit of LENNIE
Moderate pulmonary hypertension, PASP 50 mmHg, RHC tomorrow
ADHD, on dexmethylphenidate, consider discontinuation as this is contraindicated with his cardiomyopathy
Abnormal troponin, nonischemic myocardial injury in the setting of HFrEF
- Troponin 0.036 x 3
- He denies chest pain
Anxiety, with depressive features, chronic
Former smoker, continued cessation recommended
Physical Exam
Vital Signs/Labs
Vital Signs
Temp Pulse Resp BP Pulse Ox
36.3 C 114 18 120/88 96
07/04/25 15:33 07/04/25 15:33 07/04/25 15:33 07/04/25 15:33 07/04/25 15:33
07/03/25 07/04/25 07/05/25
06:59 06:59 06:59
Actual Weight 66.996 kg 65.913 kg
07/04/25 06:13
07/04/25 06:13
Triglycerides 75 mg/dl (10-149) 07/03/25 06:14
LDL Cholesterol, Calc 128 mg/dl 07/03/25 06:14
VLDL Cholesterol, Calc 15 mg/dl (0-30) 07/03/25 06:14
HDL Cholesterol 66 mg/dl 07/03/25 06:14
TSH 3.15 uIU/ml (0.47-4.68) 07/01/25 11:24
07/01/25
11:24
Zpe-P-Ubkaqkqwfiv Pept 9840
LAB Results
07/01/25 07/02/25 07/02/25
20:46 03:22 08:30
Troponin I 0.036 H* 0.036 H* 0.031
Physical Exam
Constitutional: Comfortable
Cardiovascular: Rhythm & rate is regular
Respiratory: Respiratory effort normal
Neuro/Psych: AO x 3
Data Reviewed
-
Date of Service: July 04, 2025
Medical Decision Making: Reviewed Test Results
EKG: Tracing Personally Visualized and interpreted
Echo: Tracing Personally Visualized and interpreted
X-Ray/CT/US/MRI/NUC/PET: Image Personally Visualized and interpreted
Labs: Labs Reviewed by fl
[2025-07-04] MEDS: LOVENOX 40 MG SC (17:26)
[2025-07-04] MEDS: DIOVAN 40 MG PO (19:46)
[2025-07-04] MEDS: SEROQUEL 50 MG PO (22:37)
[2025-07-05] VITALS (12 sets, daily range): BP systolic 63–101; BP diastolic 43–68; PULSE 68; O2SAT 97; BMI 24.0
--- NOTE | 2025-07-05 06:20 | PTCARENOTE ---
Pt aaox 3 able to make his needs known.Denies pain.FELLED SEAM OPERATOR CHAINSTITCH made aware of pt BP range overnight 85/58,manual 70/50, pt asymptomatic. Pt was rechecked later 91/59,hr-80. Plan of care continued on pt. FELLED SEAM OPERATOR CHAINSTITCH aware of all pt vital signs.
--- NOTE | 2025-07-05 07:00 | W.PN.UPDATE ---
Update Note
Progress Note Update
BP soft 77/54 -80's/51 HR 70's. asymptomatic
no interventions at this time.
0600 96/64 HR 70's
[2025-07-05 08:37] LABS: Blood Urea Nitrogen 35 mg/dl (9-20); Calcium 10.2 mg/dl (8.4-10.2); Carbon Dioxide 26 mmol/L (22-30); Chloride 101 mmol/L (98-107); Estimated Creatinine Clearance 49 ml/min; Glucose 99 mg/dl (70-99); Potassium 4.2 mmol/L (3.5-5.1); Sodium 137 mmol/L (135-145); eGFR > 60.00
[2025-07-05] MEDS: DIOVAN 40 MG PO (09:01)
[2025-07-05] MEDS: TOPROL XL 12.5 MG PO (09:01)
[2025-07-05] MEDS: LAMICTAL 200 MG PO (09:02)
[2025-07-05] MEDS: FARXIGA 10 MG PO (09:02)
[2025-07-05] MEDS: WELLBUTRIN XL (24 hour extended release) 300 MG PO (09:02)
[2025-07-05] MEDS: LASIX 40 MG PO (09:02)
--- NOTE | 2025-07-05 09:43 | CM ---
Pt DC to home, no needs
--- NOTE | 2025-07-05 09:49 | W.PN.HOSP.TC ---
Today's Communication/Plan
-
Neurology consult
Assessment / Plan
Assessment / Plan
Gen-AAOx3, NAD
HEENT-NC, AT, anicteric, clear oral mm
Neck-supple
CV-reg, no M, +S1/S2
Lungs-clear B/L
Abd-soft, NT, ND
Ext-no edema
Musculoskeletal-no cyanosis, clubbing
Skin-warm and dry
Neuro-5 out of 5 bilateral upper and lower extremity motor strength. Normal kglbsq-ur-gydk testing. No dysdiadochokinesia. Normal pisx-fb-uygf bilaterally. Normal sensory exam. No facial droop. Cranial nerves II through XII intact.
Psych-calm, cooperative
Acute heart failure reduced EF exacerbation -new diagnosis of heart failure.
Echocardiogram shows dilated LV, severe LV systolic dysfunction, EF 25%. Severe MR.
CT chest shows interstitial edema, very small pleural effusions.
Now on oral Lasix. Clinically improving. Weight is coming down. Oxygenation stable on room air.
Patient completed right/left heart catheterization 07/03, right dominant circulation with no CAD. PCWP 16. Findings consistent with nonischemic cardiomyopathy.
Relative hypotension noted. Cardiology recommends twice daily blood pressure checks at home, hold valsartan and metoprolol if blood pressure is low.
Mitral regurgitation -transthoracic echo read as severe regurgitation. However, JESSE read as mild. Plan to follow-up with cardiology after discharge. Discussed with Dr. Olivia.
Depth perception issues -patient concerned about his ability to ambulate, concerned about falling. Neurology consulted per patient request.
Mild hypercalcemia -10.5. Monitor for now. Will check intact PTH.
Anxiety/depression
Former smoker
Full code
Dispo - cleared for discharge by cardiology but patient requesting neurology consult prior to discharge.
Anticipated Discharge: Within 24 hours
Subjective/Interval History
-
Date of Service: July 05, 2025
Patient seen and examined. Still complaining of issues with depth perception. Denies shortness of breath.
Objective Data
-
Labs:
Laboratory Results
07/05/25 07/05/25
07:01 07:01
Sodium 137
Potassium 4.2
Chloride 101
Carbon Dioxide 26
BUN 35 H
Creatinine 1.2
Glucose 99
Calcium 10.2 Pending
Vital Signs:
Vital Signs
Temp Pulse Resp BP Pulse Ox
97.8 F 82 16 101/68 96
07/05/25 07:00 07/05/25 09:01 07/05/25 07:00 07/05/25 09:01 07/05/25 07:00
I&O
07/04/25 07/05/25 07/06/25
06:59 06:59 06:59
Intake Total 960 / 960 1080 / 1080 480 / 480
Output Total 1075 / 1075 2024
Balance -115 / -115 -945 / -945 480 / 480
Review of Systems
-
History Source: Patient
All other systems: Reviewed and negative
--- NOTE | 2025-07-05 11:10 | CON.NEURO4 ---
Addendum entered and electronically signed by Levi Patricio MD 07/05/25 19:56:
I have seen and examined the patient today along with the nurse practitioner Kristi Aguirre and I agree with her assessment and management plan. My addendum is given below.
This is a 74-year-old male who has presented to the hospital on 07/01/25 with report of shortness of breath and palpitations starting three weeks ago. Neurology is consulted due to report of dizziness and depth perception difficulty. Patient reports
that three weeks ago he had an episode while standing using the phone where he was suddenly dizzy, which he describes as light-headed, and he fell down. He laid in bed and felt like the bed was slanted. He denies any spinning sensation. This has not
recurred. At this time the patient says that he does not have any problem with the perception and he just wanted to have an opinion about what has happened about 3 weeks ago. He has not been to an cooling room attendant in years and doesn't wear his
prescription glasses as he's supposed to. He denies any headache, speech/swallow difficulty, numbness, and weakness. He reports that he has been on all of his psychiatric medications for an extended time and there have been no recent changes to them.
Neurologic examination:
Alert and oriented x 3,
Speech is clear,
The cranial nerves II through XII are grossly intact,
The motor strength is grossly 5/5 bilaterally,
The sensations are grossly intact,
The cerebellar examination does not show any limb ataxia.
ASSESSMENT AND PLAN:
The patient is a 74 years old male who says that starting 3 weeks ago, he has had dizziness and episodes in which his depth perception has been intermittently 'off'. He felt that his bed was slanted or when he tries to reach out for something or is
doing the stairs, he can underestimate where he needs to reach or step. The patient denies any symptoms at this time and his neurologic examination is normal, especially he has no limb limb ataxia. The patient is on multiple psychiatric
medications for a long time and says that there has been no recent changes to them. He has a history of ADHD, depression, and asthma.
. MRI of the brain did not show acute intracranial abnormality.
. Check orthostatics.
. Avoid hypotension. Today's blood pressure was 93/65.
. Consider decreasing the dose of Seroquel as it can cause sedation.
. EMG/NCS can be considered to rule out peripheral neuropathy.
. Ophthalmology consult as an outpatient.
Will sign off. Please call if you have any question.
Original Note:
Consultation - Neurology 4
-
CONSULTING PHYSICIAN: Levi Patricio MD
REFERRING PHYSICIAN: Hospitalists/Dr. Welsh
DICTATED BY: BING Bonilla
DATE/TIME OF REQUEST: 07/05/25
DATE/TIME OF CONSULTATION: 07/05/25
Reason for Consultation: Dizziness, depth perception issues
History of Present Illness:
This is a 74-year-old male who has presented to the hospital on 07/01/25 with report of shortness of breath and palpitations starting three weeks ago. Cardiac workup revealed HFrEF and severe mitral regurgitation. Neurology is consulted due to
report of dizziness and depth perception difficulty. Patient reports that three weeks ago he had an episode while standing using the phone where he was suddenly dizzy, which he describes as light-headed, and he fell down. He laid in bed and felt
like the bed was slanted. He denies any spinning sensation. This has not recurred. He also notes that his depth perception is intermittently 'off' he reaches for something or is doing the stairs and underestimates where he needs to reach or step. He
has not been to an cooling room attendant in years and doesn't wear his prescription glasses as he's supposed to. He denies any headache, speech/swallow difficulty, numbness, and weakness. He reports that he has been on all of his psychiatric medications
for an extended time and there have been no recent changes to them.
Past Medical History: ADHD, depression, anxiety, asthma, HLD
Surgical History: Orthopedic.
Family History: Reviewed and noncontributory.
Social History: Former smoker. Denies alcohol and illicit drug use.
Allergies: Pollen extracts.
Home Medications: See below.
Review of Symptoms:
Patient denies any fever, headache, chest pain, shortness of breath, GI or symptoms.
�Per the HPI.�All systems are reviewed negative except above.
Physical Exam:
The patient is afebrile, abdomen is nondistended, breathing is unlabored, skin is warm and dry, no edema.
Neurologic Examination:
The patient is awake, alert and oriented x 3. He is able to follow commands and answer questions appropriately. There is no aphasia or dysarthria. On cranial nerve assessment, pupils are 3 mm bilateral, round and reactive to light and
accommodation. Visual givens are full. Extraocular movements are intact. Facial sensations are intact and bilaterally symmetrical, there is no facial asymmetry. Hearing is intact bilaterally to normal conversation volume. Tongue palate and uvula are
midline. Sternocleidomastoid strengths are full bilaterally. Motor strengths are 5/5 bilateral upper and lower extremities on medical research [place] scale. There is no drift or involuntary movement noted. Deep tendon reflexes are 2+ bilateral
upper and lower extremities and Babinski is absent bilaterally. Sensations of touch is intact and bilaterally symmetrical. There was no extinction noted on double simultaneous stimulation. Coordination is intact by finger to nose bilaterally.
Lab Results: See below.
Neuro Imaging: None.
Differentials for the patient's presentation include:
1. Transient dizziness and depth perception difficulty; likely related to new diagnosis of HFrEF, hypotension, and not wearing prescription glasses, cannot entirely exclude a structural brain abnormality contributing to symptoms.
Patient has the following risk factors for their symptoms: HFrEF, Hypotension, not wearing glasses
Recommendations:
-MRI brain w/ and w/o contrast pending.
-Goal normotension, avoid hypotension.
-See ophthalmology as an outpatient.
-PT/OT evaluations.
-DVT prophylaxis.
Discussed patient care with: Dr. Patricio, the patient
Vital Signs and Labs
-
Vital Signs and Labs:
Vital Signs
Temp Pulse Resp BP Pulse Ox
98.2 F 76 16 93/65 96
07/05/25 11:00 07/05/25 11:00 07/05/25 11:00 07/05/25 11:00 07/05/25 11:00
Lab Results
07/04/25 06:13
07/05/25 07:01
Sodium 137 mmol/L (135-145) 07/05/25 07:01
Potassium 4.2 mmol/L (3.5-5.1) 07/05/25 07:01
BUN 35 mg/dl (9-20) H 07/05/25 07:01
Glucose 99 mg/dl (70-99) 07/05/25 07:01
Calcium 10.2 mg/dl (8.4-10.2) 07/05/25 07:01
Aqs-V-Rwfrzemokuw Pept 9840 pg/ml 07/01/25 11:24
LDL Cholesterol, Calc 128 mg/dl 07/03/25 06:14
Medications
-
Active Medications
Generic Name Dose Route Start Last Admin
Trade Name Freq PRN Reason Stop Dose Admin
Acetaminophen 650 mg 07/01/25 17:33
Acetaminophen 325 Mg Tablet PO 07/29/25 17:32
Q6HPRN PRN
mild pain/ fever>100.5F
Bupropion HCl 300 mg 07/02/25 08:00 07/05/25 09:02
Bupropion (24hr) Extended Release 300 Mg Tablet PO 07/30/25 07:59 300 mg
DAILY AV Administration
Calcium Carbonate 400 mg 07/02/25 12:52 07/02/25 17:08
Calcium Antacid 200 Mg (Calcium Carbonate 500 Mg) Chew Tablet PO 07/30/25 12:51 400 mg
Q4HPRN PRN Administration
indigestion
Dapagliflozin 10 mg 07/02/25 16:45 07/05/25 09:02
Dapagliflozin (Farxiga) 10 Mg Tablet PO 07/30/25 16:44 10 mg
DAILY AV Administration
Enoxaparin Sodium 40 mg 07/01/25 18:00 07/04/25 17:26
Enoxaparin Sodium 40 Mg/0.4 Ml Syringe SC 07/29/25 17:59 40 mg
QPM AV Administration
Furosemide 40 mg 07/04/25 08:00 07/05/25 09:02
Furosemide 40 Mg Tablet PO 08/01/25 07:59 40 mg
DAILY AV Administration
Lamotrigine 200 mg 07/02/25 08:00 07/05/25 09:02
Lamotrigine 100 Mg Tablet PO 07/30/25 07:59 200 mg
DAILY AV Administration
Lorazepam 0.5 mg 07/01/25 17:33
Lorazepam 0.5 Mg Tablet PO 07/29/25 17:32
DAILYPRN PRN
anxiety
Metoprolol Succinate 12.5 mg 07/03/25 08:00 07/05/25 09:01
Metoprolol 12.5 Mg Extended Release Dose (1/2 Of 25 Mg Xl Tablet) PO 07/31/25 07:59 12.5 mg
DAILY AV Administration
Dexmethylphenidate 0 mg 07/02/25 08:00
40 Mg Capsule,Er Po PO 07/30/25 07:59
Daily DAILY AV
Pantoprazole Sodium 40 mg 07/01/25 17:33 07/02/25 17:08
Pantoprazole 40 Mg Delayed Release Tablet PO 07/29/25 17:32 40 mg
DAILYPRN PRN Administration
gerd
Quetiapine Fumarate 25 mg 07/01/25 17:33 07/04/25 00:27
Quetiapine 25 Mg Tablet PO 07/29/25 17:32 25 mg
HSPRN PRN Administration
sleep
Quetiapine Fumarate 50 mg 07/01/25 22:00 07/04/25 22:37
Quetiapine 25 Mg Tablet PO 07/29/25 21:59 50 mg
HS AV Administration
Sodium Chloride 0 flush 07/01/25 19:00
Sodium Chloride 0.9% (Flush) Syringe IV 07/29/25 18:59
PER PROTOCOL AV
Valsartan 40 mg 07/04/25 20:00 07/05/25 09:01
Valsartan 40 Mg Tablet PO 08/01/25 19:59 40 mg
BID AV Administration
Home Medications
�Medication �Instructions �Recorded
bupropion HCl 300 mg 24 hr tablet, 300 mg PO DAILY Mental 07/01/25
extended release (Wellbutrin XL) Health/Anxiety
dexmethylphenidate 40 mg 40 mg PO DAILY Mental 07/01/25
capsule,extended release Health/Anxiety
[id number]
lamotrigine 200 mg tablet 200 mg PO DAILY Mental 07/01/25
Health/Anxiety
lorazepam 0.5 mg tablet 0.5 mg PO DAILYPRN PRN anxiety 07/01/25
pantoprazole 40 mg tablet,delayed 40 mg PO DAILYPRN PRN gerd 07/01/25
release (Protonix)
quetiapine 25 mg tablet (Seroquel) 25 mg PO HSPRN PRN sleep 07/01/25
quetiapine 50 mg tablet (Seroquel) 50 mg PO HS Sleep 07/01/25
dapagliflozin propanediol 10 mg 10 mg PO DAILY #30 tabs 07/05/25
tablet
furosemide 40 mg tablet 40 mg PO DAILY #30 tabs 07/05/25
metoprolol succinate 25 mg 12.5 mg (1/2 x 25 mg) PO DAILY #30 07/05/25
tablet,extended release 24 hr tabs
valsartan 40 mg tablet 40 mg PO BID #60 tabs 07/05/25
--- NOTE | 2025-07-05 14:44 | W.PN.CD ---
Today's Communication / Plan
-
No more cardiac med adjustments now
F/u arranged in our office
OK for home from cardiac standpoint
I understand neurology will be seeing pt for visual concerns
Please call with questions. Cardiology will sign off
55 min spent caring for pt today: all data reviewed, case discussed with hospitalist and patient, this note was created.
Impression / Plan
-
Background: 74M with with ADHD, asthma, hyperlipidemia, and depression who presented to the emergency department with a chief complaint of palpitations and associated shortness of breath
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
HFrEF (LVEF 25%), acute
- After just a bit of diuresis PCWP was 16 and RA 5 on 07/03/2025 (weight 67 kg/147.5 pounds)
- pBNP on admit (weight 70/69.6 kg) 9840 with Cr 1.1
Low BP
- As long as brain and kidneys remain well perfused will give meds as long as SBP over 90 mmHg
Cardiomyopathy, nonischemic (no CAD at cath 07/03/2025)
- BP will likely not support Entresto
- Now on daily Lasix, low dose HF BB, very low dose ARB, SGLT2-I
- Later will add MRA
- BP may limit uptitration of meds
- After on max meds for 3 months will check LVEF to see if ICD (BiV ICD) should be offered
Mitral regurgitation
- mild-mod in 2020 with suspected pMVP
- severe on echo 07/02/2025
- mild (likely moderate) on JESSE 07/04/2025 => morphology ok for clipping (discussion with Dr. Beyer)
- Will need repeat echo on max meds to see if MitraClip is indicated
- given QRS 150 ms with LAFB/RBBB would place UNPAID INTERN and reevaluate MR before Clipping)
Pulm pressure: echo 07/02/2025 was 50 mmHg but at cath after diuresis PA 35/17 with mean 23
Bifascicular block: RBBB/LAFB, QRS 150 ms
ADHD, on dexmethylphenidate, consider discontinuation as this is contraindicated with his cardiomyopathy
Nonischemic myocardial injury in the setting of HFrEF, peak trop 0.036
Anxiety, with depressive features, chronic
Former smoker, continued cessation recommended
Subjective: No CP or dyspnea at rest
Physical Exam
Vital Signs/Labs
Vital Signs
Temp Pulse Resp BP Pulse Ox
98.2 F 76 16 93/65 96
07/05/25 11:00 07/05/25 11:00 07/05/25 11:00 07/05/25 11:00 07/05/25 11:00
07/04/25 07/05/25 07/06/25
06:59 06:59 06:59
Actual Weight 65.913 kg 66.423 kg
07/04/25 06:13
07/05/25 07:01
Triglycerides 75 mg/dl (10-149) 07/03/25 06:14
LDL Cholesterol, Calc 128 mg/dl 07/03/25 06:14
VLDL Cholesterol, Calc 15 mg/dl (0-30) 07/03/25 06:14
HDL Cholesterol 66 mg/dl 07/03/25 06:14
TSH 3.15 uIU/ml (0.47-4.68) 07/01/25 11:24
07/01/25
11:24
Bvo-T-Nyyzewstvip Pept 9840
Data Reviewed
-
Date of Service: July 05, 2025
[2025-07-05] MEDS: LOVENOX 40 MG SC (17:35)
[2025-07-05] MEDS: DIOVAN PO (20:48)
[2025-07-05] MEDS: SEROQUEL 50 MG PO (22:12)
[2025-07-06 00:50] VITALS: BP 90/58
[2025-07-06 03:19] VITALS: BP 85/55
[2025-07-06 05:48] VITALS: BMI 24.0
[2025-07-06 07:31] VITALS: BP 96/59
[2025-07-06] MEDS: LASIX 40 MG PO (08:23)
[2025-07-06] MEDS: TOPROL XL 12.5 MG PO (08:23)
[2025-07-06] MEDS: LAMICTAL 200 MG PO (08:23)
[2025-07-06] MEDS: WELLBUTRIN XL (24 hour extended release) 300 MG PO (08:23)
[2025-07-06] MEDS: DIOVAN 40 MG PO (08:23)
[2025-07-06] MEDS: FARXIGA 10 MG PO (08:23)
--- NOTE | 2025-07-06 08:28 | W.PN.HOSP.TC ---
Today's Communication/Plan
-
Discharge
Assessment / Plan
Assessment / Plan
Gen-AAOx3, NAD
HEENT-NC, AT, anicteric, clear oral mm
Neck-supple
CV-reg, no M, +S1/S2
Lungs-clear B/L
Abd-soft, NT, ND
Ext-no edema
Musculoskeletal-no cyanosis, clubbing
Skin-warm and dry
Neuro -grossly nonfocal
Psych-calm, cooperative
Acute heart failure reduced EF exacerbation -new diagnosis of heart failure.
Echocardiogram shows dilated LV, severe LV systolic dysfunction, EF 25%. Severe MR.
CT chest shows interstitial edema, very small pleural effusions.
Now on oral Lasix. Clinically improving. Weight is coming down. Oxygenation stable on room air.
Patient completed right/left heart catheterization 07/03, right dominant circulation with no CAD. PCWP 16. Findings consistent with nonischemic cardiomyopathy.
Relative hypotension noted, patient asymptomatic. Cardiology recommends twice daily blood pressure checks at home, hold valsartan and metoprolol if blood pressure is low. As needed midodrine ordered in the hospital but so far patient has not
required.
Mitral regurgitation -transthoracic echo read as severe regurgitation. However, JESSE read as mild. Plan to follow-up with cardiology after discharge. Discussed with Dr. Olivia.
Depth perception issues -patient concerned about his ability to ambulate, concerned about falling. Neurology consulted and note reviewed. Brain MRI negative. Recommend outpatient follow-up with ophthalmology, neurology.
Mild hypercalcemia -10.4. Monitor for now. Intact PTH pending.
Anxiety/depression
Former smoker
Full code
Dispo -medically stable for discharge home today. Outpatient follow-up.
32 minutes spent in discharge process.
Anticipated Discharge: Today
Subjective/Interval History
-
Date of Service: July 06, 2025
Patient seen and examined. No complaints.
Objective Data
-
Vital Signs:
Vital Signs
Temp Pulse Resp BP Pulse Ox
97.3 F 82 16 96/59 95
07/06/25 07:31 07/06/25 08:23 07/06/25 07:31 07/06/25 08:23 07/06/25 07:31
I&O
07/05/25 07/06/25 07/07/25
06:59 06:59 06:59
Intake Total 1080 / 1080 1200 / 1200 240 / 240
Output Total 2024 / 2024 2300 / 2300 500 / 500
Balance -945 / -945 -1100 / -1100 -260 / -260
Review of Systems
-
History Source: Patient
All other systems: Reviewed and negative
--- NOTE | 2025-07-06 08:31 | W.DS.TRANS ---
DC Summary - Superintendent Overhead Distribution
-
Discharge Instructions:
Discharge Diagnosis/Procedures Acute heart failure exacerbation, cardiac
catheterization, JESSE
Diet 2 Gram Sodium
Activity As tolerated
Driving Restrictions As prior to admission
Bathing Restrictions None
Instructions: *CBC Heart Failure Instructions
Stand-Alone Forms: DC Instructions- Cath/EP Lab
Changes to Home Medications: No
Discharge Medications:
DC Medications w/original date entered in NONO
bupropion HCl 300 mg 24 hr tablet, extended release (Wellbutrin XL) 300 mg PO DAILY Mental Health/Anxiety 07/01/25
dexmethylphenidate 40 mg capsule,extended release [id number] 40 mg PO DAILY Mental Health/Anxiety 07/01/25
lamotrigine 200 mg tablet 200 mg PO DAILY Mental Health/Anxiety 07/01/25
lorazepam 0.5 mg tablet 0.5 mg PO DAILYPRN PRN anxiety 07/01/25
pantoprazole 40 mg tablet,delayed release (Protonix) 40 mg PO DAILYPRN PRN gerd 07/01/25
quetiapine 25 mg tablet (Seroquel) 25 mg PO HSPRN PRN sleep 07/01/25
quetiapine 50 mg tablet (Seroquel) 50 mg PO HS Sleep 07/01/25
dapagliflozin propanediol 10 mg tablet 10 mg PO DAILY #30 tabs 07/05/25
furosemide 40 mg tablet 40 mg PO DAILY #30 tabs 07/05/25
metoprolol succinate 25 mg tablet,extended release 24 hr 12.5 mg (1/2 x 25 mg) PO DAILY #30 tabs 07/05/25
valsartan 40 mg tablet 40 mg PO BID #60 tabs 07/05/25
Home Medication Changes
Pending Results: No
--- NOTE | 2025-07-06 08:43 | CM ---
Chart reviewed and patient is for discharge to home today, no needs.
Plan; Home today.
== END 2025-07-06 10:43 | disposition home or self-care (01) | DRG 287 ==
LOC: 4 EAST ACU 13:13
PROVIDERS: Internal Medicine Cardiovascular Disease; Nurse Practitioner; Nurse Practitioner Gerontology; Student in an Organized Health Care Education/Training Program; ADMITTING PHYSICIAN Hospitalist; CONSULT PHYSICIAN Internal Medicine Cardiovascular Disease; CONSULT PHYSICIAN Psychiatry & Neurology Neurology; EMERGENCY PHYSICIAN Emergency Medicine; FAMILY PHYSICIAN Family Medicine
PROC: B2111ZZ Fluoroscopy of Multiple Coronary Arteries using Low Osmolar Contrast (ICD-10-PCS; 2025-07-03)
PROC: 4A023N8 Measurement of Cardiac Sampling and Pressure, Bilateral, Percutaneous Approach (ICD-10-PCS; 2025-07-03)
PROC: B24BZZ4 Ultrasonography of Heart with Aorta, Transesophageal (ICD-10-PCS; 2025-07-04)
DX: I50.21 Acute systolic (congestive) heart failure (principal); I5A Non-ischemic myocardial injury (non-traumatic); I42.8 Other cardiomyopathies; I34.0 Nonrheumatic mitral (valve) insufficiency; I95.9 Hypotension, unspecified; I27.20 Pulmonary hypertension, unspecified; E83.52 Hypercalcemia; J45.909 Unspecified asthma, uncomplicated; E78.5 Hyperlipidemia, unspecified; F90.9 Attention-deficit hyperactivity disorder, unspecified type; F41.9 Anxiety disorder, unspecified; Z11.52 Encounter for screening for COVID-19; Z79.899 Other long term (current) drug therapy; Z87.891 Personal history of nicotine dependence
CPT/HCPCS: 70553; 71275; 80048; 80053; 80061; 83036; 83880; 83970; 84443; 84484; 85025; 85027; 85379; 86803; 87811; 93005; 93306; 93312; 93320; 93325; 93460; 96360; 97163; 97530; 99285; A9575; C1769; C1894; Q9967

== ENCOUNTER 2025-08-03 08:23 | Emergency (ER) | payer MEDICARE, OTHER, SELFPAY ==
[2025-08-03 08:25] VITALS: BP 108/78
[2025-08-03 08:40] VITALS: BMI 25.6
[2025-08-03 09:11] VITALS: BP 99/72
[2025-08-03] MEDS: NSS 500 IV (09:37)
--- NOTE | 2025-08-03 09:45 | ED.GENMED ---
History of Present Illness
General
Chief Complaint: Fainting Sensation
Time Seen by Provider: 08/03/25 09:14
History of Present Illness
History of Present Illness:
Patient is a 74-year-old male with recently diagnosed heart failure presenting to the emergency department lightheadedness dizziness. Patient states that he was started on few different medications for his heart failure. He states that he has been
having issues with hypotension even when he was last admitted. I did review patient's admission recently which does show a new diagnosis of heart failure. He was started on few different medications though did have limitations secondary to his
hypotension. He states that he has been extremely lightheaded especially worse with movement. He states that it was worse this morning. He then came in for further evaluation. He did not have any syncopal events. No chest pain. No shortness of
breath. He does not feel volume overloaded. No nausea vomiting diarrhea. He has been trying to limit his fluid intake secondary to the diagnoses. He alsohad redness to both his knuckles on his hands. He does have history of eczema. He has used
hydrocortisone in the past. Has not tried anything for it now. He has been noticing that has been getting superficial scratches to the knuckles as well.
Past History
Past History
ED Past Medical History: Psychiatric (bipolar depression)
ED Past Surgical History: None
Social History
Alcohol: None
Drug: None
Personal: Other
Living: with roommate
Employment: Not employed
Family History
Family History: Unable to obtain
Phy Exam
Physical Exam
Physical Exam:
GENERAL: in no acute distress
HEENT: normocephalic, extraocular movements intact, dry oral mucosa
NECK: normal inspection
RESPIRATORY: no respiratory distress, clear to auscultation bilaterally
CARDIOVASCULAR: regular rate and rhythm
ABDOMEN/: soft, non-distended, non-tender to palpation, no rebound or guarding
EXTREMITIES: non-tender, no edema/swelling, dryness to bilateral knuckles with signs of eczema/superficial scratches
NEUROLOGIC: awake and alert, moves all extremities
SKIN: warm
Course
Orders/Labs/Results
Orders:
Orders
08/03/25 08:43
Electrocardiogram (*1) Urgent
Reason for Study: Syncope
EKG- Treatment ONCE
08/03/25 09:26
0.9% Sodium Chloride 500 ml [Nss] 500 ml IV BOLUS
CR Chest - 2 Views Urgent
Comment:
Reason For Exam: sob
08/03/25 09:35
Complete Blood Count/With Diff Urgent
Comprehensive Metabolic Panel Urgent
Magnesium Urgent
NT-proBNP Urgent
Troponin I Urgent
Abnormal Lab Results
08/03/25
09:35
RBC 4.03 L 10^6/uL
(4.70-6.10)
Hgb 11.9 L g/dL
(13.0-18.0)
Hct 35.4 L %
(39.0-52.0)
Absolute Lymphs (auto) 0.9 L 10^3/uL
(1.2-3.4)
Absolute Monos (auto) 0.7 H 10^3/uL
(0.1-0.6)
Lymphocytes % 16.4 L %
(20.5-51.1)
Monocytes % 13.6 H %
(1.7-9.3)
Chloride 108 H mmol/L
(98-107)
BUN 41 H mg/dl
(9-20)
Glucose 103 H mg/dl
(70-99)
Magnesium 2.8 H mg/dl
(1.6-2.3)
Total Bilirubin 0.1 L mg/dl
(0.2-1.3)
08/03/25 09:35
08/03/25 09:35
Vital Signs
Initial and Last Documented VS:
Initial Vital Signs
Temp Pulse Resp BP Pulse Ox
97.7 F 85 16 108/78 97
08/03/25 08:25 08/03/25 08:25 08/03/25 08:25 08/03/25 08:25 08/03/25 08:25
Last Documented Vital Signs
Temp Pulse Resp BP Pulse Ox
97.7 F 67 12 108/77 97
08/03/25 08:25 08/03/25 12:00 08/03/25 12:08/03/25 12:00 08/03/25 09:49
MDM/Problems Addressed
Differential Diagnosis Includes:
Patient is a 74-year-old male with newly diagnosed CHF presenting to the emergency department lightheadedness dizziness as well as dryness to the right hand over the knuckles. Vitals are notable for hypotension. During my evaluation in the room
patient did have a few PVCs. Exam does show dry oral mucosa. Differential is broad but consists of orthostatic hypotension versus medication side effect versus electrolyte derangement versus cardiac arrhythmia though less likely as it is mostly
positional. Hands are consistent with eczema. No signs of superimposed infection. History exam not consistent with any traumatic injuries. Will check blood work EKG and give fluids.
*Pulse Oximetry
SaO2: 97
Oxygen Mode of Delivery: Room air
Patient hypoxic: no
*Critical Care Note
Total Time (30-74mins, 75-104mins- exclusive of procedures): Not Applicable
Update Note
Update Note:
Blood work notable for elevated BUN though it is similar to prior. On reevaluation patient does feel slightly better after the fluids. Blood pressure has improved. patient does state that he drinks more coffee than water. He was ambulatory here
after the fluids. Patient advised to increase water intake though being cautious with his heart failure history. will discharge patient at this time.
ED Attending Note
-
Portions of this chart may have been created with voice recognition software.� Occasional wrong word or��sound alike� substitutions may have occurred due to the inherent limitations of voice recognition software.
Discharge Plan
Departure
Patient Disposition: Home (Routine Discharge)
Date of Disposition: 08/03/25
Time of Disposition: 12:52
Patient with high blood pressure during this ER visit?: No
Discharge Problem:
Lightheaded
Instructions: Dizziness in adults - ED (DC)
Prescriptions:
No Action
lamotrigine 200 mg Tablet
200 mg PO DAILY
lorazepam 0.5 mg Tablet
0.5 mg PO DAILYPRN PRN (Reason: anxiety)
pantoprazole [Protonix] 40 mg Tablet,Delayed Release (Dr/Ec)
40 mg PO DAILYPRN PRN (Reason: gerd)
bupropion HCl [Wellbutrin XL] 300 mg Tablet Extended Release 24 Hr
300 mg PO DAILY
quetiapine [Seroquel] 50 mg Tablet
75 mg PO HS
dexmethylphenidate 40 mg Capsule,Er Biphasic 50-50
40 mg PO DAILY
furosemide 40 mg Tablet
40 mg PO DAILY Qty: 30 0RF
Patient Comments:
new
metoprolol succinate 25 mg Tablet Extended Release 24 Hr
12.5 mg PO DAILY Qty: 30 0RF
Rx Instructions:
new
valsartan 40 mg Tablet
40 mg PO BID Qty: 60 0RF
Patient Comments:
new
dapagliflozin propanediol 10 mg Tablet
10 mg PO DAILY Qty: 30 0RF
Patient Comments:
new
Referrals:
Hudson Whyte MD [Family Provider, Family Practice]
Activity Restrictions/Additional Instructions:
Thank You for choosing [facility].
It was a pleasure meeting you and taking part in your care.
You were seen in the Emergency Department today for lightheadedness. While you were here we performed blood work, which was reassuring. Please make sure you drink enough water and hold off on any coffee tea soda or juices.
We would like for you to follow up with your primary care physician for further evaluation. If you experience fever, worsening of your symptoms, or develop any other new or concerning symptoms, please return to the Emergency Department immediately.
Please see the attached sheet for additional information.
Interventions
Interventions:
*Risk Screen - Suicide Last Done: 08/03/25 08:25
*General Assessment Last Done: 08/03/25 08:25
*Neglect/Abuse Screening Last Done: 08/03/25 08:25
*ED COVID-19 Vaccine History Last Done: 08/03/25 08:34
*ED Influenza Vaccine History Last Done: 08/03/25 08:34
[facility] Risk Assessment Tool Last Done: 08/03/25 08:31
ED- Cardiac Assessment Last Done: 08/03/25 08:40
ED- Neurological Assessment Last Done: 08/03/25 08:40
Discharge Date and Time
Print Language: HAITIAN
[2025-08-03 09:50] LABS: Hematocrit 35.4 % (39.0-52.0); Hemoglobin 11.9 g/dL (13.0-18.0); Mean Corp Hgb Conc. 33.6 g/dL (33.0-37.0); Mean Corpuscular Volume 87.8 fL (80.0-94.0); Nucleated Red Blood Cells % 0 % (-); Platelet Count 199 10^3/uL (130-400); Red Cell Dist. Width 14.4 % (11.5-14.5)
[2025-08-03 09:59] LABS: ALT (SGPT) 15 U/L (0-50); AST (SGOT) 25 U/L (17-59); Albumin 4.0 g/dl (3.5-5.0); Alkaline Phosphatase 89 U/L (38-126); Blood Urea Nitrogen 41 mg/dl (9-20); Calcium 8.5 mg/dl (8.4-10.2); Carbon Dioxide 23 mmol/L (22-30); Chloride 108 mmol/L (98-107); Estimated Creatinine Clearance 52 ml/min; Glucose 103 mg/dl (70-99); Magnesium 2.8 mg/dl (1.6-2.3); Potassium 4.9 mmol/L (3.5-5.1); Sodium 136 mmol/L (135-145); Total Protein 6.5 g/dl (6.3-8.2); eGFR > 60.00
[2025-08-03 10:01] VITALS: BP 102/76
[2025-08-03 10:11] LABS: Troponin I < 0.012 ng/ml
[2025-08-03 11:00] VITALS: BP 109/78
[2025-08-03 12:00] VITALS: BP 108/77
== END 2025-08-03 13:15 | disposition home or self-care (01) ==
LOC: EMR 08:23
PROVIDERS: EMERGENCY PHYSICIAN Student in an Organized Health Care Education/Training Program; FAMILY PHYSICIAN Family Medicine
DX: R42 Dizziness and giddiness (principal); I50.9 Heart failure, unspecified; I49.3 Ventricular premature depolarization
CPT/HCPCS: 99285; 71046; 80053; 83735; 83880; 84484; 85025; 93005